=== PATIENT | male | born 1950 | race Caucasian/White ===

== ENCOUNTER → 2017-01-20 | Day surgery (SDC) | payer OTHER ==
[~2017-01-20] MED LIST: ASPIRIN81 M2 PO; ATORVASTATIN CA80 MG PO; CYMBALTA PO; FINASTERIDE5 M1 PO; GLUCOTROL PO; LIPITOR PO; LISINOPRIL5 MG PO; PANTOPRAZOLE SO40 MG PO; PREVACID PO; PRILOSEC OTC DAILY
--- NOTE | ~2017-01-20 | OR ---
Unit #: [id number] #: [id number] Patient: HIRO PARKER [id number] [address] [place], [place] [address] [id number] MR#: [id number] NAME: HIRO PARKER ROOM: Date of Procedure: 01/20/2017 Admission Date: 01/20/2017 Surgeon: Papito Cabrales M.D. : 1950 Attending Physician: Papito Cabrales M.D. Primary Care Physician: Amando Dexter Jr., M.D. OPERATIVE REPORT PREOPERATIVE DIAGNOSES Colorectal cancer surveillance. The patient has personal history of colonic polyps. PROCEDURE PERFORMED Colonoscopy up to cecum with excellent preparation and good visualization. POSTOPERATIVE DIAGNOSES Completely normal examination up to cecum. The patient did not have any polyps nor any diverticula or hemorrhoids. The quality of the prep was excellent. RECOMMENDATIONS Repeat colonoscopy in 5 years. SEDATION USED MAC. DESCRIPTION OF PROCEDURE Following detailed explanation of potential risks and complications of a colonoscopy, namely perforation, bleeding, and complication related to sedation, the patient was brought to GI lab and laid in the left lateral decubitus position. A digital rectal examination was performed, which was normal. Lubricated tip of the Olympus video colonoscope was inserted through the anus and advanced under direct vision. The scope was advanced past rectosigmoid into descending colon. No diverticula were noticed in this area. The scope tip was then navigated all the way up to cecum with visualization of the ileocecal valve and the appendiceal orifice. Preparation was excellent with good visualization and photodocumentation was obtained. Last several inches of the terminal ileum were also visualized after intubation of the ileocecal valve and appeared normal. Successive segments of the colonic mucosa were examined upon withdrawal and appeared unremarkable. There being no polyps, mass lesions, AVMs, or diverticula. The patient did not have any hemorrhoids at the anal verge. The scope was then withdrawn and the patient returned to the recovery area. He tolerated the procedure without any postprocedure complications. Dictated by... Irish Russo/christine Unit #: [id number] #: [id number] Patient: HIRO PARKER TD: 01/20/2017 16:51 JOB #: [id number] CC: Amando Dexter Jr., M.D. OPERATIVE REPORT Page 1 of 1 X Papito Cabrales MD PROCEDURE OPERATIVE NOTE
== END | disposition home or self-care (01) ==
LOC: COPS 06:25
DX: Z12.11 Encounter for screening for malignant neoplasm of colon (principal); N40.0 Benign prostatic hyperplasia without lower urinary tract symptoms; K21.9 Gastro-esophageal reflux disease without esophagitis; I10 Essential (primary) hypertension; Z86.010 Personal history of colon polyps; Z90.89 Acquired absence of other organs; Z79.82 Long term (current) use of aspirin; Z79.899 Other long term (current) drug therapy
CPT/HCPCS: 82947; J2250